=== PATIENT | female | born 1995 | race African-American/Black ===

== ENCOUNTER 2017-10-02 08:46 | Emergency (ER) | payer OTHER ==
[~2017-10-02] VITALS: Ht 172.7 cm; Wt 113.4 kg
--- NOTE | 2017-10-02 09:23 | EKG ---
[address] [address] Test Date: 2017-10-02 Test Time: 09:19:05 Pat Name: SUREKHA ALVAREZ Department: Room: Gender: F Business Account Specialist: : 1995 Requested By: ARIADNA AGUILAR Order Number: [id number] Reading MD: Measurements Intervals [place] Rate: 84 P: 32 RI: 170 QRS: 57 QRSD: 82 T: 9 QT: 338 QTc: 402 Interpretive Statements SINUS RHYTHM QRS(T) CONTOUR ABNORMALITY CONSIDER ANTEROSEPTAL MYOCARDIAL DAMAGE POSSIBLY ABNORMAL ECG RI6.01 No previous ECG available for comparison
--- NOTE | 2017-10-02 09:29 | PHYS DOC ---
Past History Past Medical History: No Pertinent History Smoking: Less than 1pk/day Adult General Chief Complaint Chief Complaint: HEADACHE HPI HPI 21-year-old female patient G1 at 17 weeks of gestation states she was at works 3 days ago and suddenly had a syncopal episode and landed on back of her head and since then has had headache without focal neuro deficit, nausea vomiting, abdominal pain or vaginal bleeding, fever and chills, urinary symptom. Review of Systems Review of Systems Constitutional: Denies fever or chills [] Eyes: Denies change in visual acuity, redness, or eye pain [] HENT: Denies nasal congestion or sore throat [] Respiratory: Denies cough or shortness of breath [] Cardiovascular: No additional information not addressed in HPI [] GI: Denies abdominal pain, nausea, vomiting, bloody stools or diarrhea [] : Denies dysuria or hematuria [] Musculoskeletal: Denies back pain or joint pain [] Integument: Denies rash or skin lesions [] Neurologic: Reports headache, denies focal weakness or sensory changes [] Endocrine: Denies polyuria or polydipsia [] All other systems were reviewed and found to be within normal limits, except as documented in this note. Physical Exam Physical Exam Constitutional: Well developed, well nourished, mild distress, non-toxic appearance. [] HENT: Normocephalic, atraumatic, bilateral external ears normal, oropharynx moist, no oral exudates, nose normal. [] Eyes: PERRLA, EOMI, conjunctiva normal, no discharge. [] Neck: Normal range of motion, no tenderness, supple, no stridor. [] Cardiovascular:Heart rate regular rhythm, no murmur [] Lungs & Thorax: Bilateral breath sounds clear to auscultation [] Abdomen: Bowel sounds normal, soft, no tenderness, no masses, no pulsatile masses, gravid abdomen, no contraction or tenderness, heart rate 168. [] Skin: Warm, dry, no erythema, no rash. [] Back: No tenderness, no CVA tenderness. [] Extremities: No tenderness, no cyanosis, no clubbing, ROM intact, no edema. [] Neurologic: Alert and oriented X 3, normal motor function, normal sensory function, no focal deficits noted. [] Psychologic: Affect normal, judgement normal, mood normal. [] EKG EKG EKG interpreted by me. EKG at 0919 showed normal sinus rhythm at rate of 84, no acute distress and T wave abnormality[] Radiology/Procedures Radiology/Procedures [] Course & Med Decision Making Course & Med Decision Making Pertinent Labs reviewed. (See chart for details) Evaluation of patient in ER showed 21-year-old female patient 17 weeks of gestation with complaining of one episode of syncope and fall and headache 3 days ago. Patient had unremarkable physical exam and labs. Patient states she taking ibuprofen and aspirin for pain and instructed to take Tylenol and stop taking ibuprofen and aspirin. I've spoken with the patient and/or caregivers. I've explained the patient's condition, diagnosis and treatment plan based on information available to me at this time. I've answered the patient's and/or caregivers questions and addressed any concerns. The patient and/or caregivers have a good understanding the patient's diagnosis, condition and treatment plan as can be expected at this point. Vital signs have been stabilized. The patient's condition is stable for discharge from the emergency department. The patient will pursue further outpatient evaluation with her primary care provider or other designated consulting physician as outlined in the discharge instructions. Patient and/or caregivers are agreeable to this plan of care and follow-up instructions have been explained in detail. The patient and/or caregivers have received these instructions in written format and expressed understanding of these discharge instructions. The patient and her caregivers are aware that if any significant change in condition or worsening of symptoms should prompt him to immediately return to this of the closest emergency department. If an emergent department is not readily available I would encourage him to call 911. [] Dragon Disclaimer Dragon Disclaimer This electronic medical record was generated, in whole or in part, using a voice recognition dictation system. Departure Departure: Impression: Primary Impression: Syncope, vasovagal Additional Impressions: Currently Headache Tobacco abuse Tobacco abuse counseling Disposition: HOME, SELF-CARE (At 1011) Condition: STABLE Referrals: PCP,IZABELLA (PCP) Patient Instructions: ABCs of , - Smoking, Syncope Additional Instructions: Take Tylenol as needed for headache Drink plenty of liquids Follow-up with your primary care physician in 3-5 days Return to ER if not getting better Problem Qualifiers ARIADNA AGUILAR MD Oct 02, 2017 09:28
[2017-10-02 09:33] LABS: BASO # 0.1 x10^3/uL (0.0-0.2); BASO % 1 % (0-3); EOS # 0.6 x10^3/uL (0.0-0.7); EOS % 5 % (0-3); HEMATOCRIT 36.3 % (36.0-47.0); HEMOGLOBIN 12.1 g/dL (12.0-15.5); LYMPH # 2.5 x10^3/uL (1.0-4.8); LYMPH % 19 % (24-48); MEAN CORPUSCULAR HEMOGLOBIN 30 pg (25-35); MEAN CORPUSCULAR HGB CONC 33 g/dL (31-37); MEAN CORPUSCULAR VOLUME 88 fL (79-100); MONO # 0.9 x10^3/uL (0.0-1.1); MONO % 7 % (0-9); NEUT % 69 % (31-73); PLATELET COUNT 233 x10^3/uL (140-400); RED BLOOD COUNT 4.11 x10^6/uL (3.50-5.40); RED CELL DISTRIBUTION WIDTH 13.6 % (11.5-14.5)
[2017-10-02 09:43] LABS: BACTERIA,URINE FEW /HPF (0-FEW); BILIRUBIN,URINE NEG (NEG); CLARITY,URINE HAZY; COLOR,URINE YELLOW; GLUCOSE,URINE NEG (NEG); NITRITE,URINE NEG (NEG); RBC,URINE 0 /HPF (0-2); SQUAMOUS EPITHELIAL CELL,UR FEW /LPF; UROBILINOGEN,URINE 0.2 mg/dL (0.2 mg/dL); WBC,URINE OCC /HPF (0-4)
[2017-10-02 09:48] LABS: ALBUMIN 2.6 g/dL (3.4-5.0); ALBUMIN/GLOBULIN RATIO 0.6 (1.0-1.7); CALCIUM 8.9 mg/dL (8.5-10.1); CREATININE 0.5 mg/dL (0.6-1.0); GFR 192.3; POTASSIUM 4.1 mmol/L (3.5-5.1); TOTAL BILIRUBIN 0.2 mg/dL (0.2-1.0); TOTAL PROTEIN 6.8 g/dL (6.4-8.2)
[2017-10-02 10:27] VITALS: BP 132/70
== END 2017-10-02 10:38 | disposition home or self-care (01) ==
LOC: ER 08:46
DX: O26.892 Other specified pregnancy related conditions, second trimester (principal); R55 Syncope and collapse; R51 Headache; O99.332 Smoking (tobacco) complicating pregnancy, second trimester; Z71.6 Tobacco abuse counseling; Z3A.17 17 weeks gestation of pregnancy
CPT/HCPCS: 36415; 80053; 81001; 85025; 93005; 99285-25

== ENCOUNTER 2018-10-16 06:20 | Emergency (ER) | payer OTHER ==
[~2018-10-16] VITALS: Ht 172.7 cm; Wt 113.4 kg
[2018-10-16 06:55] LABS: BASO # 0.1 x10^3/uL (0.0-0.2); BASO % 1 % (0-3); EOS % 9 % (0-3); HEMATOCRIT 42.9 % (36.0-47.0); HEMOGLOBIN 14.2 g/dL (12.0-15.5); LYMPH # 2.4 x10^3/uL (1.0-4.8); LYMPH % 21 % (24-48); MEAN CORPUSCULAR HEMOGLOBIN 28 pg (25-35); MEAN CORPUSCULAR HGB CONC 33 g/dL (31-37); MEAN CORPUSCULAR VOLUME 86 fL (79-100); MONO # 0.8 x10^3/uL (0.0-1.1); MONO % 7 % (0-9); NEUT # 7.3 x10^3uL (1.8-7.7); NEUT % 63 % (31-73); PLATELET COUNT 285 x10^3/uL (140-400); RED BLOOD COUNT 5.01 x10^6/uL (3.50-5.40); RED CELL DISTRIBUTION WIDTH 14.2 % (11.5-14.5); WHITE BLOOD COUNT 11.6 x10^3/uL (4.0-11.0)
--- NOTE | 2018-10-16 06:55 | PHYS DOC ---
Past History Past Medical History: No Pertinent History Past Surgical History: No Surgical History Smoking: Less than 1pk/day Alcohol Use: Occasionally Drug Use: Marijuana Adult General Chief Complaint Chief Complaint: ABDOMINAL PAIN HPI HPI Patient is a 23 year old female who presents with complaint of right upper quadrant abdominal pain. Patient states that she has had intermittent right upper quadrant abdominal pain over the past several months started having constant more intense pain starting last night into this morning. Patient states that she normally gets the pain associated with eating. Took Tylenol last night prior to bedtime. Awoke and had an episode of vomiting this morning. Rates her pain currently as 9 out of 10. Has not received any previous evaluation for her symptoms. Family history positive for cholecystitis. Denies any known associated fever. States that the pain radiates towards her right middle back. Review of Systems Review of Systems Constitutional: Denies fever or chills [] Eyes: Denies change in visual acuity, redness, or eye pain [] HENT: Denies nasal congestion or sore throat [] Respiratory: Denies cough or shortness of breath [] Cardiovascular: Denies chest pain or edema[] GI: Abdominal pain, nausea, vomiting, denies diarrhea[] : Denies dysuria or hematuria [] Musculoskeletal: Denies back pain or joint pain [] Integument: Denies rash or skin lesions [] Neurologic: Denies headache, focal weakness or sensory changes [] All other systems were reviewed and found to be within normal limits, except as documented in this note. Current Medications Current Medications Current Medications Medications (Trade) Dose Ordered Sig/Tan Start Time Stop Time Status Last Admin Dose Admin Fentanyl Citrate (Fentanyl 2ml Vial) 50 mcg PRN Q15MIN PRN 10/16/18 07:00 10/17/18 06:59 UNV Ondansetron HCl (Zofran) 4 mg 1X ONCE 10/16/18 07:00 10/16/18 07:01 UNV Sodium Chloride 1,000 ml @ 1,000 mls/hr Q1H 10/16/18 06:48 10/16/18 07:47 UNV Allergies Allergies Allergies Coded Allergies Type Severity Reaction Last Updated Verified No Known Drug Allergies 10/16/18 No Physical Exam Physical Exam Constitutional: Alert, afebrile, appears in mild to moderate discomfort. [] HENT: Normocephalic, atraumatic, bilateral external ears normal, oropharynx moist, no oral exudates, nose normal. [] Eyes: PERRLA, EOMI, conjunctiva normal, no discharge. [] Neck: Normal range of motion, no tenderness, supple, no stridor. [] Cardiovascular:Heart rate regular rhythm, no murmur [] Lungs & Thorax: Bilateral breath sounds clear to auscultation [] Abdomen: Bowel sounds normal, soft, right upper quadrant tenderness to palpation with guarding, no rebound tenderness, no masses, no pulsatile masses. [] Skin: Warm, dry, no erythema, no rash. [] Back: No tenderness, no CVA tenderness. [] Extremities: No tenderness, no cyanosis, no clubbing, ROM intact, no edema. [] Neurologic: Alert and oriented X 3, normal motor function, normal sensory function, no focal deficits noted. [] Current Patient Data Vital Signs Vital Signs Date Time Temp Pulse Resp B/P (MAP) Pulse Ox O2 Delivery O2 Flow Rate FiO2 10/16/18 06:20 97.7 84 16 99 Room Air Lab Results Laboratory Tests Test 10/16/18 06:30 10/16/18 06:35 10/16/18 06:38 Urine Collection Type Unknown Urine Color Yellow Urine Clarity Hazy Urine pH 6.0 Urine Specific [place] >=1.030 Urine Protein 30 mg/dl Urine Glucose (UA) Neg mg/dL Urine Ketones (Stick) Trace mg/dL Urine Blood Neg Urine Nitrite Neg Urine Bilirubin Neg Urine Urobilinogen Dipstick 0.2 mg/dL Urine Leukocyte Esterase Neg Urine RBC Rare /HPF Urine WBC 1-4 /HPF Urine Squamous Epithelial Cells Many /LPF Urine Bacteria Many /HPF Urine Mucus Mod /LPF White Blood Count 11.6 x10^3/uL Red Blood Count 5.01 x10^6/uL Hemoglobin 14.2 g/dL Hematocrit 42.9 % Mean Corpuscular Volume 86 fL Mean Corpuscular Hemoglobin 28 pg Mean Corpuscular Hemoglobin Concent 33 g/dL Red Cell Distribution Width 14.2 % Platelet Count 285 x10^3/uL Neutrophils (%) (Auto) 63 % Lymphocytes (%) (Auto) 21 % Monocytes (%) (Auto) 7 % Eosinophils (%) (Auto) 9 % Basophils (%) (Auto) 1 % Neutrophils # (Auto) 7.3 x10^3uL Lymphocytes # (Auto) 2.4 x10^3/uL Monocytes # (Auto) 0.8 x10^3/uL Eosinophils # (Auto) 1.0 x10^3/uL Basophils # (Auto) 0.1 x10^3/uL Sodium Level 139 mmol/L Potassium Level 3.8 mmol/L Chloride Level 105 mmol/L Carbon Dioxide Level 26 mmol/L Anion Gap 8 Blood Urea Nitrogen 9 mg/dL Creatinine 0.7 mg/dL Estimated GFR (Cockcroft-Gault) 127.8 BUN/Creatinine Ratio 13 Glucose Level 93 mg/dL Calcium Level 8.6 mg/dL Magnesium Level 1.8 mg/dL Total Bilirubin 0.5 mg/dL Aspartate Amino Transf (AST/SGOT) 17 U/L Alanine Aminotransferase (ALT/SGPT) 26 U/L Alkaline Phosphatase 67 U/L Total Protein 7.6 g/dL Albumin 3.3 g/dL Albumin/Globulin Ratio 0.8 Lipase 76 U/L Bedside Urine HCG, Qualitative hcg negative Current Medications Medications (Trade) Dose Ordered Sig/Tan Route PRN Reason Start Time Stop Time Status Last Admin Dose Admin Fentanyl Citrate (Fentanyl 2ml Vial) 50 mcg PRN Q15MIN PRN IV PAIN GREATER THAN 3/10 10/16/18 07:00 10/17/18 06:59 10/16/18 07:04 Sodium Chloride 1,000 ml @ 1,000 mls/hr Q1H IV 10/16/18 07:00 10/16/18 07:59 10/16/18 07:04 Ondansetron HCl (Zofran) 4 mg 1X ONCE IV 10/16/18 07:00 10/16/18 07:02 DC 10/16/18 07:04 EKG EKG Not performed[] Radiology/Procedures Radiology/Procedures [address] [address] IMAGING REPORT Signed PATIENT: SUREKHA ALVAREZ ACCOUNT: [id number] : 1995 LOCATION: ER AGE: 23 SEX: F EXAM STATUS: REG ER ORD. PHYSICIAN: ASUNCION SOLIZ MD REASON: RUQ abdominal pain PROCEDURE: ABDOMEN LTD Limited ultrasound abdomen 10/16/2018 INDICATION: Right upper quadrant abdominal pain. COMPARISON: None available TECHNIQUE: Sonographic evaluation of the right upper quadrant was performed utilizing grayscale and color Doppler. FINDINGS: Visualized portions of the pancreas appear normal. Body and tail are obscured by bowel gas. Aorta and IVC are intact as visualized. Gallstones are identified within the gallbladder. There is no significant gallbladder wall thickening. No pericholecystic fluid. Gallstones are mobile. Liver is homogeneous in echotexture. No significant mass lesion is identified. No intrahepatic or extrahepatic biliary ductal dilatation. Common bile duct measures 3 mm. Right hepatic lobe measures 15.9 cm. Right kidney measures 12.8 x 6.1 x 5.4 cm. There is no hydronephrosis. No cystic or solid mass. No renal calculi are identified. IMPRESSION: Cholelithiasis without sonographic evidence for acute cholecystitis. Electronically signed by: Deondre Ibrahim MD (10/16/2018 8:12 AM) [id number] DICTATED AND SIGNED BY: DEONDRE IBRAHIM MD DATE: 10/16/18 0812 CC: ASUNCION SOLIZ MD; PCP,NO ~ [] Course & Med Decision Making Course & Med Decision Making Pertinent Labs and Imaging studies reviewed. (See chart for details) Patient was given IV fluids, fentanyl and Zofran. Despite multiple doses of fentanyl, the patient states that her pain is not much better. Ultrasound confirms multiple gallstones including sounds at the neck of the gallbladder. Given continued tenderness in the right upper quadrant with confirm gallstones, the patient is having prolonged symptomatic cholelithiasis. The patient will need general surgical consultation which is not available here at [facility]. I contacted Dr. Wallace, general surgeon at [facility] , who has agreed to accept patient as a direct admission. The patient will be transferred to [facility] by ground ambulance. Patient in agreement with treatment plan at time of disposition.[] Dragon Disclaimer Dragon Disclaimer This electronic medical record was generated, in whole or in part, using a voice recognition dictation system. Departure Departure: Impression: Primary Impression: Symptomatic cholelithiasis Disposition: XFER SHT-TRM HOSP Condition: STABLE Referrals: PCP,NO (PCP) ASUNCION SOLIZ MD Oct 16, 2018 06:55
[2018-10-16] MEDS ORDERED: ONDANSETRON PF 4 MG/2 ML VIAL. IV ONE (07:00)
[2018-10-16] MEDS ORDERED: IV NORMAL SALINE 1,000ML 1,000 ML IV SCH (07:00)
[2018-10-16 07:03] LABS: BACTERIA,URINE MANY /HPF (0-FEW); BILIRUBIN,URINE NEG (NEG); CLARITY,URINE HAZY; COLOR,URINE YELLOW; GLUCOSE,URINE NEG (NEG); NITRITE,URINE NEG (NEG); RBC,URINE RARE /HPF (0-2); SQUAMOUS EPITHELIAL CELL,UR MANY /LPF; UROBILINOGEN,URINE 0.2 mg/dL (0.2 mg/dL)
[2018-10-16 07:04] LABS: ALBUMIN 3.3 g/dL (3.4-5.0); ALBUMIN/GLOBULIN RATIO 0.8 (1.0-1.7); CALCIUM 8.6 mg/dL (8.5-10.1); CREATININE 0.7 mg/dL (0.6-1.0); GFR 127.8; MAGNESIUM 1.8 mg/dL (1.8-2.4); POTASSIUM 3.8 mmol/L (3.5-5.1); TOTAL BILIRUBIN 0.5 mg/dL (0.2-1.0); TOTAL PROTEIN 7.6 g/dL (6.4-8.2)
--- NOTE | 2018-10-16 08:14 | RAD ---
Limited ultrasound abdomen 10/16/2018 INDICATION: Right upper quadrant abdominal pain. COMPARISON: None available TECHNIQUE: Sonographic evaluation of the right upper quadrant was performed utilizing grayscale and color Doppler. FINDINGS: Visualized portions of the pancreas appear normal. Body and tail are obscured by bowel gas. Aorta and IVC are intact as visualized. Gallstones are identified within the gallbladder. There is no significant gallbladder wall thickening. No pericholecystic fluid. Gallstones are mobile. Liver is homogeneous in echotexture. No significant mass lesion is identified. No intrahepatic or extrahepatic biliary ductal dilatation. Common bile duct measures 3 mm. Right hepatic lobe measures 15.9 cm. Right kidney measures 12.8 x 6.1 x 5.4 cm. There is no hydronephrosis. No cystic or solid mass. No renal calculi are identified. IMPRESSION: Cholelithiasis without sonographic evidence for acute cholecystitis. Electronically signed by: Ariella Nelson MD (10/16/2018 8:12 AM) [id number]
[2018-10-16 10:00] VITALS: BP 151/88
== END 2018-10-16 10:14 | disposition short-term general hospital (02) ==
LOC: ER 06:20
DX: K80.80 Other cholelithiasis without obstruction (principal); F17.200 Nicotine dependence, unspecified, uncomplicated
CPT/HCPCS: 36415; 76705; 80053; 81001; 81025; 83690; 83735; 85025; 87086; 96361; 96374; 96375; 96376; 99285; J2405; J3010; J7030

== ENCOUNTER 2018-12-25 07:26 | Emergency (ER) | payer OTHER ==
[~2018-12-25] VITALS: Ht 172.7 cm; Wt 119.7 kg
[2018-12-25 07:40] VITALS: BP 148/102
[2018-12-25] MEDS ORDERED: NAPR500T8 PO (07:56)
--- NOTE | 2018-12-25 07:56 | PHYS DOC ---
Past History Past Medical History: Hypertension Past Surgical History: Cholecystectomy Smoking: Less than 1pk/day Additional Smoking Information: 07/11 PPD Alcohol Use: None Drug Use: None Adult General Chief Complaint Chief Complaint: WRIST PAIN HPI HPI Patient has a otherwise healthy 23-year-old female who states that she has some wrist pain. She denies any traumatic injury. She states she may have hurt it lifting something at work. States it hurts when she flexes and extends. She denies any other injury. She does state there is a little swelling. She reaffirms that there is nothing she did that could've broken her wrist.[] Review of Systems Review of Systems Musculoskeletal: Left wrist pain as described in the history of present illness[] All other systems were reviewed and found to be within normal limits, except as documented in this note. Allergies Allergies Allergies Coded Allergies Type Severity Reaction Last Updated Verified No Known Drug Allergies 10/16/18 No Physical Exam Physical Exam Constitutional: Well developed, well nourished, mild distress, non-toxic appearance. [] Cardiovascular:Heart rate regular rhythm, no murmur [] Lungs & Thorax: Bilateral breath sounds clear to auscultation []. [] Skin: No erythema over the wrist. [] Back: No tenderness, no CVA tenderness. [] Extremities; mild tenderness left wrist no deformity full range of motion with some discomfort[] Current Patient Data Vital Signs Vital Signs Date Time Temp Pulse Resp B/P (MAP) Pulse Ox O2 Delivery O2 Flow Rate FiO2 12/25/18 07:40 98.2 93 21 99 Room Air EKG EKG [] Radiology/Procedures Radiology/Procedures [] Course & Med Decision Making Course & Med Decision Making Pertinent Labs and Imaging studies reviewed. (See chart for details) [ED course: A Velcro wrist splint was applied by the nursing staff. Neurovascular intact after splint placement. I instructed the patient to wear the wrist splint for the next 5-7 days.] Dragon Disclaimer Dragon Disclaimer This electronic medical record was generated, in whole or in part, using a voice recognition dictation system. Departure Departure: Impression: Primary Impression: Left wrist sprain Disposition: HOME, SELF-CARE Condition: STABLE Referrals: PCP,NO (PCP) Patient Instructions: Wrist Sprain with [facility] Additional Instructions: Wear the Velcro wrist splint for the next 5-7 days. Take medication as directed. Return to emergency department with any new or concerning symptoms Scripts Naproxen (NAPROXEN) 500 Mg Tablet.dr 1 TAB PO Q12HR PRN for PAIN, #60 TAB 1 Refill Prov: YAMILA PORTER DO 12/25/18 Problem Qualifiers Primary Impression: Left wrist sprain Encounter type: initial encounter Qualified Codes: S63.502A - Unspecified sprain of left wrist, initial encounter YAMILA PORTER DO Dec 25, 2018 07:56
== END 2018-12-25 08:06 | disposition home or self-care (01) ==
LOC: ER 07:26
DX: S63.502A Unspecified sprain of left wrist, initial encounter (principal); I10 Essential (primary) hypertension; F17.200 Nicotine dependence, unspecified, uncomplicated; X50.9XXA Other and unspecified overexertion or strenuous movements or postures, initial encounter; Y93.89 Activity, other specified; Y92.89 Other specified places as the place of occurrence of the external cause; Y99.0 Civilian activity done for income or pay
CPT/HCPCS: 29125; 99283

== ENCOUNTER 2019-01-23 15:55 | Emergency (ER) | payer OTHER ==
[~2019-01-23] VITALS: Ht 172.7 cm; Wt 112.0 kg
[~2019-01-23 15:55] MED LIST: NAPR500T8 PO
--- NOTE | 2019-01-23 16:48 | PHYS DOC ---
Past History Past Medical History: Hypertension Past Surgical History: Cholecystectomy Smoking: Less than 1pk/day Alcohol Use: Rarely Drug Use: None Adult General Chief Complaint Chief Complaint: SORE THROAT HPI HPI 23-year-old female presents with 3 day history of sore throat and fever. Her fevers up to 102. She tried DayQuil improved her fever. It does not help with the throat pain. It is painful to swallow liquids and solids. She is not sure if she still has a fever. She has had some chills. Her throat feels more swollen. She can feel lymph nodes in her neck. She does not get pharyngitis often. She cannot member last time she had strep. No known sick contacts. Review of Systems Review of Systems Constitutional: Denies fever or chills [] Eyes: Denies change in visual acuity, redness, or eye pain [] HENT: sore throat [] Respiratory: Denies cough or shortness of breath [] Cardiovascular: No additional information not addressed in HPI [] GI: Denies abdominal pain, nausea, vomiting, bloody stools or diarrhea [] : Denies dysuria or hematuria [] Musculoskeletal: Denies back pain or joint pain [] Integument: Denies rash or skin lesions [] Neurologic: Denies headache, focal weakness or sensory changes [] Endocrine: Denies polyuria or polydipsia [] All other systems were reviewed and found to be within normal limits, except as documented in this note. Current Medications Current Medications Current Medications Medications (Trade) Dose Ordered Sig/Tan Start Time Stop Time Status Last Admin Dose Admin Penicillin G Benzathine (Bicillin L-A) 1,200,000 unit 1X ONCE 01/23/19 16:45 01/23/19 16:46 UNV Allergies Allergies Allergies Coded Allergies Type Severity Reaction Last Updated Verified No Known Drug Allergies 10/16/18 No Physical Exam Physical Exam Constitutional: Well developed, well nourished, no acute distress, non-toxic appearance. [] HENT: Normocephalic, atraumatic, bilateral external ears normal, oropharynx erythematous with bilateral tonsillar, nose congested. [] Eyes: PERRLA, EOMI, conjunctiva normal, no discharge. [] Neck: Normal range of motion, prominent bilateral anterior lymph nodes with moderate tenderness, supple, no stridor. [] Cardiovascular:Heart rate regular rhythm, no murmur [] Lungs & Thorax: Bilateral breath sounds clear to auscultation [] Abdomen: Bowel sounds normal, soft, no tenderness, no masses, no pulsatile masses. [] Skin: Warm, dry, no erythema, no rash. [] Back: No tenderness, no CVA tenderness. [] Extremities: No tenderness, no cyanosis, no clubbing, ROM intact, no edema. [] Neurologic: Alert and oriented X 3, normal motor function, normal sensory function, no focal deficits noted. [] Psychologic: Affect normal, judgement normal, mood normal. [] Current Patient Data Vital Signs Vital Signs Date Time Temp Pulse Resp B/P (MAP) Pulse Ox O2 Delivery O2 Flow Rate FiO2 01/23/19 16:10 99.9 129 19 95 Room Air Lab Results Laboratory Tests Test 01/23/19 16:15 Group A Streptococcus Rapid Negative (NEGATIVE) EKG EKG [] Radiology/Procedures Radiology/Procedures [] Course & Med Decision Making Course & Med Decision Making Pertinent Labs and Imaging studies reviewed. (See chart for details) Patient's rapid strep is negative, but she has prominent bilateral exudates on her tonsils and her breath is the odor of strep. I will treat her anyway. She has opted for Bicillin injection versus oral treatment. We will give this in the ED. She is stable for discharge at this time. [] Dragon Disclaimer Dragon Disclaimer This electronic medical record was generated, in whole or in part, using a voice recognition dictation system. Departure Departure: Impression: Primary Impression: Strep pharyngitis Disposition: HOME, SELF-CARE Condition: STABLE Referrals: PCP,IZABELLA (PCP) Patient Instructions: Strep Throat, [id number] DEB GAMBOA DO Jan 23, 2019 16:48
[2019-01-23] MEDS ORDERED: PENICILLIN G BENZATHINE LA 1,200,000 UNIT/2 ML DISP.SYRIN. IM ONE (17:10)
[2019-01-23] MEDS ORDERED: CEPH-264 PO (18:10)
[2019-01-23] MEDS ORDERED: LIDOCAINE 1% Multi-Dose 20 ML VIAL. ONE (18:28)
[2019-01-23] MEDS ORDERED: FLUCONAZOLE 100 MG TABLET. PO ONE (18:30)
[2019-01-23] MEDS ORDERED: AZITHROMYCIN 250 MG TABLET. PO ONE (18:30)
[2019-01-23] MEDS ORDERED: cefTRIAXone IM 250 MG VIAL IM ONE (18:30)
[2019-01-23 18:57] VITALS: BP 161/79
[2019-01-24 17:10] LABS: CHLAMYDIA PROBE Negative (Negative)
== END 2019-01-23 19:02 | disposition home or self-care (01) ==
LOC: ER 15:55
DX: J02.0 Streptococcal pharyngitis (principal); B95.0 Streptococcus, group A, as the cause of diseases classified elsewhere; N94.89 Other specified conditions associated with female genital organs and menstrual cycle; I10 Essential (primary) hypertension; F17.200 Nicotine dependence, unspecified, uncomplicated
CPT/HCPCS: 36415; 87070; 87491; 87591; 87880; 96372; 99284; J0456; J0696; Q0111

== ENCOUNTER 2019-01-26 12:28 | Emergency (ER) | payer OTHER ==
[~2019-01-26] VITALS: Ht 172.7 cm; Wt 112.0 kg
[2019-01-26 12:28] VITALS: BP 139/77
[~2019-01-26 12:28] MED LIST changes: +CEPH-264 PO
--- NOTE | 2019-01-26 12:56 | PHYS DOC ---
Past History Past Medical History: Hypertension Past Surgical History: Cholecystectomy Smoking: Less than 1pk/day Alcohol Use: Rarely Drug Use: None Adult General Chief Complaint Chief Complaint: SORE THROAT HPI HPI Patient is a 23-year-old female presents complaining of sore throat for the past several days. She was seen 3 days ago and given Rocephin and azithromycin due to concern for possible STD. She was also started on Keflex despite a negative rapid strep test. Patient has not been taking the Keflex. She is here because of continued pain and difficulty swallowing. Pain is moderate.. No fever. No radiation of the discomfort. [] Review of Systems Review of Systems Constitutional: Denies fever or chills [] Eyes: Denies change in visual acuity, redness, or eye pain [] HENT: Denies nasal congestion, see history of present illness[] Respiratory: Denies cough or shortness of breath [] Cardiovascular: No chest pain or palpitations[] GI: Denies abdominal pain, nausea, vomiting, bloody stools or diarrhea [] : Denies dysuria or hematuria [] Musculoskeletal: Denies back pain or joint pain [] Integument: Denies rash or skin lesions [] Neurologic: Denies headache, focal weakness or sensory changes [] Endocrine: Denies polyuria or polydipsia [] All other systems were reviewed and found to be within normal limits, except as documented in this note. Allergies Allergies Allergies Coded Allergies Type Severity Reaction Last Updated Verified No Known Drug Allergies 10/16/18 No Physical Exam Physical Exam Constitutional: Well developed, well nourished, no acute distress, non-toxic appearance. [] HENT: Normocephalic, atraumatic, bilateral external ears normal, oropharynx moist, oral exudates are present bilaterally, uvula is midline, mildly enlarged tonsils, nose normal. [] Eyes: PERRLA, EOMI, conjunctiva normal, no discharge. [] Neck: Normal range of motion, no tenderness, supple, no stridor. Anterior chain cervical lymphadenopathy is present bilaterally symmetric[] Cardiovascular:Heart rate regular rhythm, no murmur [] Lungs & Thorax: Bilateral breath sounds clear to auscultation [] Abdomen: Not examined. [] Skin: Warm, dry, no erythema, no rash. [] Back: No tenderness, no CVA tenderness. [] Extremities: No tenderness, no cyanosis, no clubbing, ROM intact, no edema. [] Neurologic: Alert and oriented X 3, normal motor function, normal sensory function, no focal deficits noted. [] Psychologic: Affect normal, judgement normal, mood normal. [] EKG EKG [] Radiology/Procedures Radiology/Procedures [] Course & Med Decision Making Course & Med Decision Making Pertinent Labs and Imaging studies reviewed. (See chart for details) ED course and medical decision making: Patient arrived, was placed in bed, and tolerated exam well. Reviewed records of previous visit, she was given Rocephin 250 mg IM as well as azithromycin 1 g orally. This should be appropriate for gonococcal pharyngitis. Her rapid strep test was negative however the culture grew out group C beta hemolytic streptococcus. I offered patient several options to include continuing current therapy as well as IM injections of Bicillin which was offered but ultimately not performed last visit, as well as Decadron. She opted for the Bicillin L-A and Decadron. These were administered with any complications. She was discharged in improved condition with all questions answered. There is no evidence of meningitis or encephalitis. No evidence of systemic toxicity. No peritonsillar abscess. No retropharyngeal abscess. No impending airway compromise.[] Dragon Disclaimer Dragon Disclaimer This electronic medical record was generated, in whole or in part, using a voice recognition dictation system. Departure Departure: Impression: Primary Impression: Pharyngitis Disposition: HOME, SELF-CARE Condition: IMPROVED Referrals: PCP,NO (PCP) Patient Instructions: Viral and Bacterial Pharyngitis Additional Instructions: Follow-up with your regular doctor in 2 days. If you do not have a regular doctor list of local clinics will be provided for you. Drink plenty of fluids. Return to the ER if worsening pain, fever of more than 101, or any other concerns. Problem Qualifiers Primary Impression: Pharyngitis Pharyngitis/tonsillitis etiology: unspecified etiology Qualified Codes: J02.9 - Acute pharyngitis, unspecified IZABEL CÁRDENAS DO Jan 26, 2019 12:56
[2019-01-26] MEDS ORDERED: DEXAMETHASONE SOD PHOS 10 MG/ML VIAL IM ONE (13:00)
[2019-01-26] MEDS ORDERED: PENICILLIN G BENZATHINE LA 1,200,000 UNIT/2 ML DISP.SYRIN. IM ONE (13:00)
== END 2019-01-26 13:00 | disposition home or self-care (01) ==
LOC: ER 12:28
DX: J02.9 Acute pharyngitis, unspecified (principal); I10 Essential (primary) hypertension; F17.200 Nicotine dependence, unspecified, uncomplicated
CPT/HCPCS: 96372; 99284; J0561; J1100